=== PATIENT | male | born 1970 | race African-American/Black ===

== ENCOUNTER 2016-05-17 12:05 | Emergency (ER) | payer OTHER ==
[2016-05-17 12:14] VITALS: BP 130/90; PULSE 84; TEMP 98.3; BMI 29.8
[2016-05-17] MEDS ORDERED: IBUPROFEN 600 MG TABLET (FP) PO ONE ×2 (12:45→12:50)
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
== END 2016-05-17 13:02 | disposition home or self-care (01) ==
LOC: JERFT 12:05
DX: S16.1XXA Strain of muscle, fascia and tendon at neck level, initial encounter (principal); S80.01XA Contusion of right knee, initial encounter; S39.012A Strain of muscle, fascia and tendon of lower back, initial encounter; S46.911A Strain of unspecified muscle, fascia and tendon at shoulder and upper arm level, right arm, initial encounter; V43.52XA Car driver injured in collision with other type car in traffic accident, initial encounter; Y93.89 Activity, other specified; Y92.410 Unspecified street and highway as the place of occurrence of the external cause; I10 Essential (primary) hypertension
CPT/HCPCS: 99281-25